=== PATIENT | male | born 1960 | race Caucasian/White ===

== ENCOUNTER 2018-02-11 17:24 | Emergency (ER) | payer OTHER ==
[2018-02-11 17:53] VITALS: RESP 18
--- NOTE | 2018-02-11 19:09 | ED ---
General Adult HPI - General Chief complaint: Extremity Injury, Lower Stated complaint: lt knee dislocated Time Seen by Provider: 02/11/18 18:34 Source: patient, RN notes reviewed Mode of arrival: wheelchair Limitations: no limitations - History of Present Illness Initial comments: 57-year-old male presents to the emergency department for a chief complaint of left knee pain 2 hours. Patient states he was sitting in his chair when he moved and felt a sudden pain in his left knee. Patient states he believes he dislocated his kneecap. Patient denies any pain before this injury. Patient has chronic knee pain from an injury over 30 years ago. He has not seen an orthopedic surgeon for this. Patient has pain with walking on the knee. Patient has no other complaints at this time including shortness of breath, chest pain, abdominal pain, nausea or vomiting, headache, or visual changes. - Related Data Previous Rx's Medication Instructions Recorded Ibuprofen [Motrin] 600 mg PO Q6HR PRN #20 tab 02/11/18 Allergies Allergy/AdvReac Type Severity Reaction Status Date / Time No Known Allergies Allergy Verified 02/11/18 17:53 Review of Systems ROS Statement: Those systems with pertinent positive or pertinent negative responses have been documented in the HPI. ROS Other: All systems not noted in ROS Statement are negative. Past Medical History Past Medical History: No Reported History History of Any Multi-Drug Resistant Organisms: None Reported Past Surgical History: Hernia Repair Past Psychological History: Anxiety, Depression Smoking Status: Current every day smoker Past Alcohol Use History: None Reported Past Drug Use History: None Reported General Exam Limitations: no limitations General appearance: alert, in no apparent distress Head exam: Present: atraumatic Eye exam: Present: normal appearance Neck exam: Present: normal inspection, full ROM. Absent: tenderness, meningismus, lymphadenopathy Respiratory exam: Present: normal lung sounds bilaterally. Absent: respiratory distress, wheezes, rales, rhonchi, stridor Cardiovascular Exam: Present: regular rate, normal rhythm, normal heart sounds. Absent: systolic murmur, diastolic murmur, rubs, gallop, clicks Extremities exam: Present: tenderness (Tenderness to the left anterior knee.), normal capillary refill (Capillary refill less than 2 seconds and radial pulse 2 +.), joint swelling (Patient has moderate swelling of the right knee.), other ( Sensation intact in the left lower extremity). Absent: full ROM (Patient has full extension of the left knee and about 90 flexion of the left knee), calf tenderness (No tenderness in the left calf. No redness swelling or warmth noted in the left calf.) Course Vital Signs 02/11/18 17:50 Temperature 99.1 F Pulse Rate 62 Respiratory 18 Rate Blood Pressure 143/81 O2 Sat by Pulse 97 Oximetry Medical Decision Making - Medical Decision Making 57-year-old male presents to the emergency department for a chief complaint of left knee pain times one day. It started today when patient was sitting in a chair and he felt a pop of his left knee. Patient does have chronic left knee pain which has been similar in the past. On exam patient's left knee is slightly swollen. Neurovascular intact.X-ray of the left knee shows no fracture or dislocation. Joint spaces are normal. No sign of joint effusion. Patient already has brace on that he would like to continue to wear. I did offer any immobilizer which patient refused since it was so big. Patient will rest ice and elevate the knee. He will take Motrin for pain. He will follow up with orthopedics in one to 2 days. He will return to the emergency department if he has any worsening symptoms. Disposition Clinical Impression: Knee pain, left Disposition: HOME SELF-CARE Condition: Good Instructions: Knee Pain (ED), RICE Therapy (ED) Additional Instructions: Please take Motrin as directed. Please wear brace. Please rest ice and elevate the knee. Follow-up with orthopedics in one to 2 days. Return to the emergency department if you have any worsening symptoms. Prescriptions: Ibuprofen [Motrin] 600 mg PO Q6HR PRN #20 tab PRN Reason: Pain Is patient prescribed a controlled substance at d/c from ED?: No Referrals: Ravi Sanders MD [Primary Care Provider] - 1-2 days Chris Booker MD [STAFF PHYSICIAN] - 1-2 days Time of Disposition: 20:20
--- NOTE | 2018-02-11 19:38 | XR ---
EXAMINATION TYPE: XR knee complete LT DATE OF EXAM: 02/11/2018 CLINICAL HISTORY: Knee pain TECHNIQUE: Three views of the left knee are obtained. COMPARISON: None. FINDINGS: I see no fracture nor dislocation. Joint spaces are normal. There is no sign of joint effus ion. IMPRESSION: Negative left knee exam.
[2018-02-11 20:33] VITALS: BP 140/79; PULSE 56; TEMP 98.8
== END 2018-02-11 20:32 | disposition home or self-care (01) ==
LOC: EC 17:24
DX: M25.562 Pain in left knee (principal); F17.200 Nicotine dependence, unspecified, uncomplicated
CPT/HCPCS: 99283

== ENCOUNTER 2022-05-03 21:32 | Emergency (ER) | payer OTHER ==
[2022-05-03 22:25] VITALS: RESP 20
[2022-05-03] MEDS ORDERED: AMOXIC-POT CLAV 875-125MG 1 EACH TAB PO STA (22:51)
[2022-05-03] MEDS ORDERED: ACET/COD 300 MG/30 MG STARTER PACK 6 TAB BTL PO STA (22:51)
--- NOTE | 2022-05-03 22:53 | ED ---
General Adult HPI - General Chief complaint: Dental/Oral Stated complaint: periodontitis pain Time Seen by Provider: 05/03/22 22:39 Source: patient Mode of arrival: ambulatory Limitations: no limitations - History of Present Illness Initial comments: Patient is a 61-year-old male presenting with chief complaint of dental pain. Patient states that for the last few days he has had dental pain and facial swelling on the right side of the face. Patient has history of periodontal disease, he has appointment with his dentist coming up on the . Patient has been taking Motrin and Tylenol, but the pain has been increasing. He denies any difficulty breathing, difficulty swallowing, no muffled voice, drooling, fever, chills, headache, neck pain, vision or hearing changes, trismus. - Related Data Previous Rx's Medication Instructions Recorded Ibuprofen [Motrin] 600 mg PO Q6HR PRN #20 tab 02/11/18 Amoxic-Pot Clav 875-125Mg 1 tab PO Q12HR 7 Days #14 tab 05/03/22 [Augmentin 875-125] Allergies Allergy/AdvReac Type Severity Reaction Status Date / Time No Known Allergies Allergy Verified 05/03/22 22:25 Review of Systems ROS Statement: Those systems with pertinent positive or pertinent negative responses have been documented in the HPI. ROS Other: All systems not noted in ROS Statement are negative. Past Medical History Past Medical History: No Reported History History of Any Multi-Drug Resistant Organisms: None Reported Past Surgical History: Hernia Repair Past Psychological History: Anxiety, Depression Smoking Status: Current every day smoker Past Alcohol Use History: Occasional Past Drug Use History: Marijuana General Exam Limitations: no limitations General appearance: alert, in no apparent distress Head exam: Present: atraumatic, normocephalic, normal inspection Eye exam: Present: normal appearance, PERRL, EOMI. Absent: scleral icterus, conjunctival injection, periorbital swelling Expanded Mouth exam: Present: tongue normal, other (Floor of the mouth is soft, no brawny induration). Absent: drooling, trismus, muffled voice Teeth exam: Present: dental caries, dental tenderness #, gingival enlargement Throat exam: normal inspection. negative: tonsillomegaly Neck exam: Present: normal inspection, full ROM. Absent: tenderness Respiratory exam: Present: normal lung sounds bilaterally. Absent: respiratory distress, wheezes, rales, rhonchi, stridor Cardiovascular Exam: Present: regular rate, normal rhythm, normal heart sounds. Absent: systolic murmur, diastolic murmur, rubs, gallop, clicks Left Elbow exam: Present: full ROM, swelling, other (There is a small amount of swelling to the left elbow, this is painless and patient has full range of motion and sensation). Absent: tenderness, abrasion, ecchymosis, erythema Vascular: Absent: vascular compromise Neurological exam: Present: alert, oriented X3, CN II-XII intact Psychiatric exam: Present: normal affect, normal mood Skin exam: Present: warm, dry, intact, normal color. Absent: rash Course Vital Signs 05/03/22 22:21 Temperature 98.2 F Pulse Rate 71 Respiratory 20 Rate Blood Pressure 187/90 O2 Sat by Pulse 99 Oximetry Procedures - Incision & Drainage Consent Obtained: verbal consent Site: oral Size (cm): 3 Sterile Field Used?: No Needle Aspiration Performed?: Yes Irrigation Performed?: No I&D Drainage Obtained: Pus, Blood Patient Tolerated Procedure: well Medical Decision Making - Medical Decision Making Patient is a 61-year-old male presenting with chief complaint of dental pain. Patient has had right-sided pain and swelling to the mouth for a few days, patient has known periodontal disease. Patient is also complaining of swelling to the left elbow. He states that it starts after he hit the bone, there is a large amount of swelling, it has progressively come down, he denies any pain, he has full range of motion. On examination there is dental tenderness along the right lower mandible, there is a clear abscess seen. No visible airway obstruction. Abscess is drained using needle aspiration. Patient will be given Augmentin twice a day for 7 days and pain medication. Educated on supportive treatment. Patient is also educated on bursitis and supportive treatment. Follow-up with PCP. Report back to ER with any new or worsening symptoms. Discussed return parameters and answered all questions. Patient conveyed verbal understanding and agreed to the plan. I discussed this case in detail with my attending Dr. Gomes Disposition Clinical Impression: Dental abscess Disposition: HOME SELF-CARE Condition: Good Instructions (If sedation given, give patient instructions): Dental Abscess (ED), Toothache (ED) Additional Instructions: Follow-up with dentist and PCP. Report back to ER with any new or worsening symptoms. Take medication as prescribed. Take Tylenol and Motrin as needed for pain control. Prescriptions: Amoxic-Pot Clav 875-125Mg [Augmentin 875-125] 1 tab PO Q12HR 7 Days #14 tab Is patient prescribed a controlled substance at d/c from ED?: No Referrals: Ravi Sanders MD [Primary Care Provider] - 1-2 days Time of Disposition: 22:53
[2022-05-03 23:25] VITALS: BP 160/78; PULSE 80; TEMP 98.4
== END 2022-05-03 23:24 | disposition home or self-care (01) ==
LOC: EC 21:32
DX: K04.7 Periapical abscess without sinus (principal); F41.9 Anxiety disorder, unspecified; F32.A Depression, unspecified; F17.200 Nicotine dependence, unspecified, uncomplicated; F12.90 Cannabis use, unspecified, uncomplicated; Z79.899 Other long term (current) drug therapy
CPT/HCPCS: 10060; 99283

== ENCOUNTER 2022-12-19 01:20 | Emergency (ER) | payer OTHER ==
[2022-12-19] MEDS ORDERED: FLUORESCEIN STRIPS 1 MG STRIP RIGHT EYE ONE (01:45)
[2022-12-19] MEDS ORDERED: PROPARACAINE 0.5% OPHTH DROPS 15 ML BTL RIGHT EYE STA (01:45)
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
[2022-12-19] MEDS ORDERED: SULFACETAMIDE SOD 10% OPHTH DROPS 15 ML BTL RIGHT EYE SCH (02:15)
[2022-12-19 02:34] VITALS: BP 154/87; PULSE 59; RESP 20; TEMP 98.7
== END 2022-12-19 02:33 | disposition home or self-care (01) ==
LOC: EC 01:20
DX: S05.01XA Injury of conjunctiva and corneal abrasion without foreign body, right eye, initial encounter (principal); F17.200 Nicotine dependence, unspecified, uncomplicated; F12.90 Cannabis use, unspecified, uncomplicated; W22.8XXA Striking against or struck by other objects, initial encounter; Y99.0 Civilian activity done for income or pay
CPT/HCPCS: 99283

== ENCOUNTER 2023-01-23 22:42 | Emergency (ER) | payer OTHER ==
[2023-01-23] MEDS ORDERED: IBUPROFEN 800 MG TAB PO STA (23:38)
[2023-01-23] MEDS ORDERED: LIDOCAINE 1% INJ 10MG/ML (30 ML VIAL-PF) SQ ONE (23:38)
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
[2023-01-24 00:53] VITALS: BP 179/83; PULSE 78; RESP 16; TEMP 97.6
== END 2023-01-24 00:52 | disposition home or self-care (01) ==
LOC: EC 22:42
DX: S91.012A Laceration without foreign body, left ankle, initial encounter (principal); F17.200 Nicotine dependence, unspecified, uncomplicated; F12.90 Cannabis use, unspecified, uncomplicated; W26.8XXA Contact with other sharp object(s), not elsewhere classified, initial encounter
CPT/HCPCS: 99282; J2001

== ENCOUNTER 2023-01-28 15:52 | Emergency (ER) | payer OTHER ==
[2023-01-28] MEDS ORDERED: SULFAMETHOX-TMP 800-160MG 1 EACH TAB PO STA (16:42)
[2023-01-28] MEDS ORDERED: CEPHALEXIN 500 MG CAP PO STA (16:42)
[2023-01-28] MEDS ORDERED: ACETAMINOPHEN TAB 500 MG TAB PO STA (16:49)
[2023-01-28] MEDS ORDERED: IBUPROFEN 800 MG TAB PO STA (16:49)
--- NOTE | 2023-01-28 16:49 | ED ---
Recheck HPI - General Chief Complaint: Recheck/Abnormal Lab/Rx Stated Complaint: Recheck Time Seen by Provider: 01/28/23 16:27 Source: patient, RN notes reviewed, old records reviewed Mode of arrival: ambulatory - History of Present Illness Initial Comments: This is a 62-year-old male for recheck. Patient is rechecking recent sutures, patient had sutures placed in his left ankle after injury. Laceration repaired. Patient has had increasing redness and swelling of his left lower extremity with increasing pain. No new trauma. Patient states the pain is significant and is causing him to have any ability to bear weight on his left leg. Patient denies any fever. Nondiabetic. -: hour(s) Returns Today for: persistent/worsening pain related to initial visit Symptoms Since Prior Visit: worsening pain, worsening swelling, worsening redness Context: planned re-check Associated Symptoms: none Treatments Prior to Arrival: home treatments - Related Data Previous Rx's Medication Instructions Recorded Ibuprofen [Motrin] 600 mg PO Q6HR PRN #20 tab 02/11/18 Amoxic-Pot Clav 875-125Mg 1 tab PO Q12HR 7 Days #14 tab 05/03/22 [Augmentin 875-125] Cephalexin [Keflex] 500 mg PO Q6HR #40 cap 01/28/23 Sulfamethox-Tmp 800-160Mg [Bactrim 2 tab PO BID #40 tab 01/28/23 DS 800-160 mg] Allergies Allergy/AdvReac Type Severity Reaction Status Date / Time No Known Allergies Allergy Verified 02/01/23 12:22 Review of Systems ROS Statement: Those systems with pertinent positive or pertinent negative responses have been documented in the HPI. ROS Other: All systems not noted in ROS Statement are negative. Past Medical History Past Medical History: No Reported History History of Any Multi-Drug Resistant Organisms: None Reported Past Surgical History: Hernia Repair Past Psychological History: Anxiety, Depression Smoking Status: Current every day smoker Past Alcohol Use History: Occasional Past Drug Use History: Marijuana General Exam - General Exam Comments Initial Comments: Left ankle sutures are surrounded by erythema was minimal drainage, increased swelling, mild warmth and tenderness General appearance: alert, in no apparent distress Head exam: Present: atraumatic, normocephalic, normal inspection Eye exam: Present: normal appearance, PERRL, EOMI. Absent: scleral icterus, conjunctival injection, periorbital swelling ENT exam: Present: normal exam, mucous membranes moist Neck exam: Present: normal inspection. Absent: tenderness, meningismus, lymphadenopathy Respiratory exam: Present: normal lung sounds bilaterally. Absent: respiratory distress, wheezes, rales, rhonchi, stridor Cardiovascular Exam: Present: regular rate, normal rhythm, normal heart sounds. Absent: systolic murmur, diastolic murmur, rubs, gallop, clicks GI/Abdominal exam: Present: soft, normal bowel sounds. Absent: distended, tenderness, guarding, rebound, rigid Extremities exam: Present: normal inspection, full ROM, normal capillary refill. Absent: tenderness, pedal edema, joint swelling, calf tenderness Back exam: Present: normal inspection Neurological exam: Present: alert, oriented X3, CN II-XII intact Psychiatric exam: Present: normal affect, normal mood Skin exam: Present: warm, dry, intact, normal color. Absent: rash Course Vital Signs 01/28/23 01/28/23 01/28/23 16:23 17:41 18:29 Temperature 99.4 F 98.1 F 98.2 F Pulse Rate 90 62 65 Respiratory 20 16 16 Rate Blood Pressure 153/89 146/77 142/84 O2 Sat by Pulse 100 99 99 Oximetry - Reevaluation(s) Reevaluation #1: 01/28/23 18:05 Medical record is reviewed Reevaluation #2: 01/28/23 18:05 Patient's pain is improving Reevaluation #3: 01/28/23 18:06 Patient informed of results and questions answered Reevaluation #4: 01/28/23 18:06 Was pt. sent in by a medical professional or institution? @ -no Did you speak to anyone other than the patient for history? @ -no Did you review nursing and triage notes? @ -agree Were old charts reviewed? @ -yes Differential Diagnosis? @ -prior EKG interpreted by me (3pts min.)? @ -no X-rays interpreted by me (1pt min.)? @ -yes CT interpreted by me (1pt min.)? @ -no U/S interpreted by me (1pt. min.)? @ -no What testing was considered but not performed? (CT, X-rays, U/S, labs)? Why? @ -no What meds were considered but not given? Why? @ -no Did you discuss the management of the patient with other professionals? @ -no Did you reconcile home meds? @ -no Was smoking cessation discussed for >3mins.? @ -no Was critical care preformed (if so, how long)? @ -no Were there social determinants of health that impacted care today? How? (Homelessness, low income, unemployed, alcoholism, drug addiction, transportation, low edu. Level, literacy, decrease access to med. care, half-way, r ehab)? @ -no Was there de-escalation of care discussed even if they declined? (Discuss DNR or withdrawal of care, Hospice)? @ -no What co-morbidities impacted this encounter? (DM, HTN, Smoking, COPD, CAD, Cancer, CVA, Hep., AIDS, mental health diagnosis, sleep apnea, morbid obesity)? @ -none Was patient admitted / discharged? @ -62 male to the emergency department for evaluation patient recently had sutures placed, patient is a follow-up for reevaluation of wound, patient does appear to have local cellulitis. patient will be given antibiotics for home to antibiotic therapy as well as pain control. Patient can be discharged home Discharge Undiagnosed new problem with uncertain prognosis? @ -no Drug Therapy requiring intensive monitoring for toxicity (Heparin, Nitro, Insulin, Cardizem)? @ -no Were any procedures done? @ -no Diagnosis/symptom? @ -Wound infection, cellulitis Acute, or Chronic, or Acute on Chronic? @ -acute Uncomplicated (without systemic symptoms) or Complicated (systemic symptoms)? @ -complicated Side effects of treatment? @ -no Exacerbation, Progression, or Severe Exacerbation] @ -no Poses a threat to life or bodily function? @ -no Medical Decision Making - Medical Decision Making 62 male to the emergency department for evaluation patient recently had sutures placed, patient is a follow-up for reevaluation of wound, patient does appear to have local cellulitis. patient will be given antibiotics for home to antibiotic therapy as well as pain control. Patient can be discharged home - Radiology Data Radiology results: report reviewed (X-ray left ankle negative for fracture), image reviewed Disposition Clinical Impression: Cellulitis of left ankle Disposition: HOME SELF-CARE Condition: Good Instructions (If sedation given, give patient instructions): Cellulitis (ED) Prescriptions: Sulfamethox-Tmp 800-160Mg [Bactrim DS 800-160 mg] 2 tab PO BID #40 tab Cephalexin [Keflex] 500 mg PO Q6HR #40 cap Is patient prescribed a controlled substance at d/c from ED?: No Referrals: Nonstaff,Physician [Primary Care Provider] - 1-2 days Time of Disposition: 18:00
[2023-01-28] MEDS ORDERED: MUPIROCIN 2% OINT 22 GM TUBE TOPICAL ONE (17:00)
[2023-01-28 17:43] VITALS: RESP 16
[2023-01-28] MEDS ORDERED: ACET/COD 300 MG/30 MG STARTER PACK 6 TAB BTL PO STA (18:08)
[2023-01-28] MEDS ORDERED: SULFAMETH-TMP DS STARTER PACK 2 TAB BTL PO STA (18:08)
[2023-01-28] MEDS ORDERED: CEPHALEXIN 500MG STARTER PACK 4 CAP BTL PO STA (18:08)
--- NOTE | 2023-01-28 18:23 | XR ---
EXAMINATION TYPE: XR ankle complete LT DATE OF EXAM: 01/28/2023 5:05 PM INDICATION: Patient age:Male; 62 years old; Reason for study: pain; PHH. COMPARISON: None TECHNIQUE: The left ankle is imaged in frontal, lateral and oblique projections. FINDINGS: There is no evidence of acute osseous pathology. The joint spaces are well-preserved without evidenc e of subluxation or dislocation. Kager's fat pad is intact. Moderate soft tissue swelling around the ankle. Few coarse calcifications near the insertion of the Achilles tendon. No radiopaque foreign bod ies are identified. IMPRESSION: 1. No evidence of acute fracture. 2. Subcutaneous swelling around the ankle likely secondary to underlying soft tissue injury.
[2023-01-28 18:30] VITALS: BP 142/84; PULSE 65; TEMP 98.2
== END 2023-01-28 18:30 | disposition home or self-care (01) ==
LOC: EC 15:52
DX: L03.116 Cellulitis of left lower limb (principal); F17.200 Nicotine dependence, unspecified, uncomplicated; F12.90 Cannabis use, unspecified, uncomplicated
CPT/HCPCS: 99284

== ENCOUNTER 2023-02-01 12:18 | Emergency (ER) | payer OTHER ==
[2023-02-01] MEDS ORDERED: ACET/COD 300 MG/30 MG STARTER PACK 6 TAB BTL PO STA (13:44)
--- NOTE | 2023-02-01 13:44 | ED ---
Lower Extremity Injury HPI - General Chief Complaint: Extremity Injury, Lower Stated Complaint: L Ankle Time Seen by Provider: 02/01/23 13:27 Source: patient, RN notes reviewed Mode of arrival: ambulatory Limitations: no limitations - History of Present Illness Initial Comments: 62-year-old male presents emergency Department chief complaint of a laceration to his left ankle this happen this Wednesday's ago he was seen hereand antibiotics she states is improving to sutures out but states he wants is wound recheck. He states he still has some discomfort but is deaf any improving. Patient states he needs a work extension off. - Related Data Previous Rx's Medication Instructions Recorded Ibuprofen [Motrin] 600 mg PO Q6HR PRN #20 tab 02/11/18 Amoxic-Pot Clav 875-125Mg 1 tab PO Q12HR 7 Days #14 tab 05/03/22 [Augmentin 875-125] Cephalexin [Keflex] 500 mg PO Q6HR #40 cap 01/28/23 Sulfamethox-Tmp 800-160Mg [Bactrim 2 tab PO BID #40 tab 01/28/23 DS 800-160 mg] Allergies Allergy/AdvReac Type Severity Reaction Status Date / Time No Known Allergies Allergy Verified 02/01/23 12:22 Review of Systems ROS Statement: Those systems with pertinent positive or pertinent negative responses have been documented in the HPI. ROS Other: All systems not noted in ROS Statement are negative. Past Medical History Past Medical History: No Reported History History of Any Multi-Drug Resistant Organisms: None Reported Past Surgical History: Hernia Repair Past Psychological History: Anxiety, Depression Smoking Status: Current every day smoker Past Alcohol Use History: Occasional Past Drug Use History: Marijuana General Exam Limitations: no limitations General appearance: alert, in no apparent distress Head exam: Present: atraumatic, normocephalic, normal inspection Respiratory exam: Present: normal lung sounds bilaterally. Absent: respiratory distress, wheezes, rales, rhonchi, stridor Cardiovascular Exam: Present: regular rate, normal rhythm, normal heart sounds. Absent: systolic murmur, diastolic murmur, rubs, gallop, clicks Extremities exam: Present: other (Left lower extremity there is a healing laceration is mild erythema there is no purulent drainage) Course Vital Signs 02/01/23 02/01/23 12:19 14:06 Temperature 98.1 F 97.9 F Pulse Rate 70 78 Respiratory 20 18 Rate Blood Pressure 145/79 136/74 O2 Sat by Pulse 99 97 Oximetry Medical Decision Making - Medical Decision Making Was pt. sent in by a medical professional or institution (ANDREZ Liz, ELECTRONIC PREPRESS OPERATOR, urgent care, hospital, or fci...) When possible be specific @ -No Did you speak to anyone other than the patient for history (EMS, parent, family, police, friend...)? What history was obtained from this source @ -No Did you review nursing and triage notes (agree or disagree)? Why? @ -I reviewed and agree with nursing and triage notes Were old charts reviewed (outside hosp., previous admission, EMS record, old EKG, old radiological studies, urgent care reports/EKG's, fci records)? Report findings @ -[Reviewed recent ER visit some medications Differential Diagnosis (chest pain, altered mental status, abdominal pain women, abdominal pain men, vaginal bleeding, weakness, fever, dyspnea, syncope, headache, dizziness, GI bleed, back pain, seizure, CVA, palpatations, mental health, musculoskeletal)? @ -Laceration, cellulitis, leg pain EKG interpreted by me (3pts min.). @ -None X-rays interpreted by me (1pt min.). @ -None done CT interpreted by me (1pt min.). @ -None done U/S interpreted by me (1pt. min.). @ -None done What testing was considered but not performed or refused? (CT, X-rays, U/S, labs)? Why? @ -None What meds were considered but not given or refused? Why? @ -None Did you discuss the management of the patient with other professionals (professionals i.e. ANDREZ Liz, ELECTRONIC PREPRESS OPERATOR, lab, RT, psych nurse, social welfare research worker, parking attendant, teacher, public relations officer, case worker)? Give summary @ -No Was smoking cessation discussed for >3mins.? @ -No Was critical care preformed (if so, how long)? @ -No Were there social determinants of health that impacted care today? How? (Homelessness, low income, unemployed, alcoholism, drug addiction, transportation, low edu. Level, literacy, decrease access to med. care, [facility], rehab)? @ -No Was there de-escalation of care discussed even if they declined (Discuss DNR or withdrawal of care, Hospice)? DNR status @ -No What co-morbidities impacted this encounter? (DM, HTN, Smoking, COPD, CAD, Cancer, CVA, ARF, Chemo, Hep., AIDS, mental health diagnosis, sleep apnea, morbid obesity)? @ -None Was patient admitted / discharged? Hospital course, mention meds given and route, prescriptions, significant lab abnormalities, going to OR and other pertinent info. @ -Discharge patient had sutures removed by RN patient will finish antibiotics return parameters were discussed Undiagnosed new problem with uncertain prognosis? @ -No Drug Therapy requiring intensive monitoring for toxicity (Heparin, Nitro, Insulin, Cardizem)? @ -No Were any procedures done? @ -No Diagnosis/symptom? @ -Suture removal, laceration, leg cellulitis Acute, or Chronic, or Acute on Chronic? @ -Acute Uncomplicated (without systemic symptoms) or Complicated (systemic symptoms)? @ -Uncomplicated Side effects of treatment? @ -No Exacerbation, Progression, or Severe Exacerbation? @ -No Poses a threat to life or bodily function? How? (Chest pain, [place], [place], pneumonia, PE, COPD, DKA, ARF, appy, cholecystitis, CVA, Diverticulitis, Homicidal, Suicidal, threat to staff... and all critical care pts) @ -No Disposition Clinical Impression: Cellulitis of left ankle, Laceration Disposition: HOME SELF-CARE Condition: Stable Additional Instructions: Please return to the Emergency Department if symptoms worsen or any other concerns. Is patient prescribed a controlled substance at d/c from ED?: No Referrals: None,Stated [Primary Care Provider] - 1-2 days Time of Disposition: 13:44
[2023-02-01 14:12] VITALS: BP 136/74; PULSE 78; RESP 18; TEMP 97.9
== END 2023-02-01 14:13 | disposition home or self-care (01) ==
LOC: EC 12:18
DX: L03.116 Cellulitis of left lower limb (principal); F17.200 Nicotine dependence, unspecified, uncomplicated; F12.90 Cannabis use, unspecified, uncomplicated; Z86.59 Personal history of other mental and behavioral disorders; X58.XXXA Exposure to other specified factors, initial encounter
CPT/HCPCS: 99283

== ENCOUNTER 2024-01-31 18:17 | Emergency (ER) | payer BC ==
[2024-01-31 18:46] VITALS: TEMP 97.8
--- NOTE | 2024-01-31 19:21 | ED ---
Lower Extremity Injury HPI - General Chief Complaint: Extremity Injury, Lower Stated Complaint: L knee pain Time Seen by Provider: 01/31/24 19:17 Source: patient, RN notes reviewed Mode of arrival: wheelchair Limitations: no limitations - History of Present Illness Initial Comments: 3-year-old male presenting with left knee injury 2 hours ago. States he felt immediate pain in his left knee while walking earlier today. States he has a long history of left knee problems. States he had an injury in the late and since then, has had many left knee injuries. He has extreme pain with weightbearing on the left side. Denies any blunt trauma or injury. Denies numbness or tingling. - Related Data Previous Rx's Medication Instructions Recorded Ibuprofen [Motrin] 600 mg PO Q6HR PRN #20 tab 02/11/18 Amoxic-Pot Clav 875-125Mg 1 tab PO Q12HR 7 Days #14 tab 05/03/22 [Augmentin 875-125] Cephalexin [Keflex] 500 mg PO Q6HR #40 cap 01/28/23 Sulfamethox-Tmp 800-160Mg [Bactrim 2 tab PO BID #40 tab 01/28/23 DS 800-160 mg] Allergies Allergy/AdvReac Type Severity Reaction Status Date / Time No Known Allergies Allergy Verified 02/01/23 12:22 Review of Systems ROS Statement: Those systems with pertinent positive or pertinent negative responses have been documented in the HPI. ROS Other: All systems not noted in ROS Statement are negative. Past Medical History Past Medical History: No Reported History History of Any Multi-Drug Resistant Organisms: None Reported Past Surgical History: Hernia Repair Past Psychological History: Anxiety, Depression Smoking Status: Current every day smoker Past Alcohol Use History: Occasional Past Drug Use History: Marijuana General Exam Limitations: no limitations General appearance: alert, in no apparent distress Head exam: Present: atraumatic, normocephalic, normal inspection Left Upper Leg exam: Present: normal inspection, full ROM. Absent: tenderness, swelling Knee exam: Present: normal inspection (Mild edema on lateral aspect of left knee. No erythema or warmth.), tenderness (Mild tenderness on lateral aspect of left knee), swelling. Absent: full ROM (Limited flexion and extension), abrasion, laceration, deformity, effusion Lower Leg exam: Present: normal inspection, full ROM. Absent: tenderness, swelling Ankle exam: Present: normal inspection, full ROM. Absent: tenderness, swelling Foot/Toe exam: Present: normal inspection, full ROM. Absent: tenderness, swelling Course Vital Signs 01/31/24 18:44 Temperature 97.8 F Pulse Rate 61 Respiratory 16 Rate Blood Pressure 178/73 O2 Sat by Pulse 99 Oximetry Medical Decision Making - Medical Decision Making Was pt. sent in by a medical professional or institution (, PA, DRUG SAFETY COORDINATOR, urgent care, hospital, or prison...) When possible be specific @ -No Did you speak to anyone other than the patient for history (EMS, parent, family, police, friend...)? What history was obtained from this source @ -No Did you review nursing and triage notes (agree or disagree)? Why? @ -I reviewed and agree with nursing and triage notes Were old charts reviewed (outside hosp., previous admission, EMS record, old EKG, old radiological studies, urgent care reports/EKG's, prison records)? Report findings @ -No old charts were reviewed Differential Diagnosis (chest pain, altered mental status, abdominal pain women, abdominal pain men, vaginal bleeding, weakness, fever, dyspnea, syncope, headache, dizziness, GI bleed, back pain, seizure, CVA, palpatations, mental health, musculoskeletal)? @ -Differential Musculoskeletal Muscular strain, contusion, ligament sprain, fracture, arthritis, septic arthritis, bursitis, cellulitis, muscle spasm, nerve compression, DVT, arterial occlusion, herpes zoster, electrolyte abnormality, tumor.... This is not meant to be in all inclusive list EKG interpreted by me (3pts min.). @ -None X-rays interpreted by me (1pt min.). @ -X-ray reveals no acute osseous abnormality of left knee, mild progressive degenerative joint change predominantly within the medial compartment of left knee. CT interpreted by me (1pt min.). @ -None done U/S interpreted by me (1pt. min.). @ -None done What testing was considered but not performed or refused? (CT, X-rays, U/S, labs)? Why? @ -None What meds were considered but not given or refused? Why? @ -None Did you discuss the management of the patient with other professionals (professionals i.e. , ANDREZ, DRUG SAFETY COORDINATOR, lab, RT, psych nurse, clinical social work aide, ski patrol director, teacher, articulation officer, caseworker protective services)? Give summary @ -No Was smoking cessation discussed for >3mins.? @ -No Was critical care preformed (if so, how long)? @ -No Were there social determinants of health that impacted care today? How? (Homelessness, low income, unemployed, alcoholism, drug addiction, transportation, low edu. Level, literacy, decrease access to med. care, care home, rehab)? @ -No Was there de-escalation of care discussed even if they declined (Discuss DNR or withdrawal of care, Hospice)? DNR status @ -No What co-morbidities impacted this encounter? (DM, HTN, Smoking, COPD, CAD, Cancer, CVA, ARF, Chemo, Hep., AIDS, mental health diagnosis, sleep apnea, morbid obesity)? @ -None Was patient admitted / discharged? Hospital course, mention meds given and route, prescriptions, significant lab abnormalities, going to OR and other pertinent info. @ -Patient was discharged. Patient was seen and evaluated for left knee injury. Patient is neurovascularly intact. Patient is having difficulty ambulating due to pain with weightbearing. X-ray reveals no acute osseous abnormality of left knee. Discussed diagnosis of left knee sprain. Patient is given IM Toradol and Norflex for pain. Orthopedic follow-up given. Patient placed in knee immobilizer and given crutches. Supportive care discussed. Strict return parameters discussed. Case discussed with my attending Dr. Newman. Patient discharged in stable condition. Undiagnosed new problem with uncertain prognosis? @ -No Drug Therapy requiring intensive monitoring for toxicity (Heparin, Nitro, Insulin, Cardizem)? @ -No Were any procedures done? @ -No Diagnosis/symptom? @ -Left knee sprain Acute, or Chronic, or Acute on Chronic? @ -Acute Uncomplicated (without systemic symptoms) or Complicated (systemic symptoms)? @ -Uncomplicated Side effects of treatment? @ -No Exacerbation, Progression, or Severe Exacerbation? @ -No Poses a threat to life or bodily function? How? (Chest pain, [place], [place], pneumonia, PE, COPD, DKA, ARF, appy, cholecystitis, CVA, Diverticulitis, Homicidal, Suicidal, threat to staff... and all critical care pts) @ -Unlikely Disposition Clinical Impression: Left knee sprain Disposition: HOME SELF-CARE Condition: Stable Instructions (If sedation given, give patient instructions): Knee Sprain (ED) Additional Instructions: Please follow-up with orthopedics within the week. Use elevation, ice, and compression to the knee. Please return to the Emergency Department if symptoms worsen or any other concerns. Is patient prescribed a controlled substance at d/c from ED?: No Referrals: None,Stated [Primary Care Provider] - 1-2 days Will Brar DO [Doctor of Osteopathic Medicine] - 1-2 days Time of Disposition: 20:40
[2024-01-31] MEDS: ACETAMINOPHEN TAB 325 MG TAB PO STA (19:38)
--- NOTE | 2024-01-31 19:57 | XR ---
EXAMINATION TYPE: XR knee complete LT DATE OF EXAM: 01/31/2024 COMPARISON: 02/12/2028 HISTORY: popped getting out of truck TECHNIQUE: 3 view left knee FINDINGS: There is narrowing of the medial compartment joint space. This is progressive from the comp arison. Lateral compartment joint space is preserved. Patellofemoral joint space is preserved. No alesha nt effusion is evident. No acute fractures or dislocations. Vascular calcification is noted. Follow up exams can be performed 7-10 days from acute trauma for continued pain. IMPRESSION: 1. No acute osseous abnormality left knee. 2. Mild progressive degenerative joint change predominantly within the medial compartment left knee
[2024-01-31] MEDS: KETOROLAC 15 MG/ML 1 ML VIAL IM STA (20:55)
[2024-01-31] MEDS: ORPHENADRINE 30 MG/ML 2 ML VIAL IM STA (20:55)
[2024-01-31 21:07] VITALS: BP 178/81; PULSE 56; RESP 20
== END 2024-01-31 21:07 | disposition home or self-care (01) ==
LOC: EC 18:17
DX: S83.92XA Sprain of unspecified site of left knee, initial encounter (principal); F17.200 Nicotine dependence, unspecified, uncomplicated; F12.90 Cannabis use, unspecified, uncomplicated; X58.XXXA Exposure to other specified factors, initial encounter; Y93.01 Activity, walking, marching and hiking
CPT/HCPCS: 73562; 99283; 96372 ×2; L1830; J2360; J1885